=== PATIENT | male | born 1945 | race African-American/Black ===

== ENCOUNTER 2018-04-26 07:18 | Emergency (ER) | payer BC | END 2018-04-26 08:33 | disposition home or self-care (01) | LOC: ER 07:18 | DX: L02.01 Cutaneous abscess of face (principal); E11.9 Type 2 diabetes mellitus without complications | CPT/HCPCS: 70486; 99284 ==

== ENCOUNTER 2018-05-03 09:25 | Emergency (ER) | payer BC | END 2018-05-03 09:50 | disposition home or self-care (01) | LOC: ER 09:25 | DX: T63.331D Toxic effect of venom of brown recluse spider, accidental (unintentional), subsequent encounter (principal); L98.8 Other specified disorders of the skin and subcutaneous tissue; E11.9 Type 2 diabetes mellitus without complications | CPT/HCPCS: 99283 ==

== ENCOUNTER 2020-06-13 19:48 | Emergency (ER) | payer BC, MEDICARE ==
[~2020-06-13] VITALS: Ht 172.7 cm; Wt 65.9 kg
[~2020-06-13 19:48] MED LIST: AMOX1TAB61 PO; DOXY100C14 PO; HYDR-3164 PO; IBUP-1060 PO; TRAM50TA PO
--- NOTE | 2020-06-13 21:40 | PHYS DOC ---
Past Medical History Past Medical History: Diabetes-Type II Past Surgical History: No Surgical History Smoking Status: Never Smoker Alcohol Use: Occasionally Drug Use: None General Adult EDM: Chief Complaint: LOWER EXTREMITY EDEMA HPI: HPI: Patient is a 75 year old male presents for evaluation of left lower extremity swelling. Patient had pain left calf described as a george horse 5-6 days ago. Patient noticed swelling left lower extremity left pedal 2 days ago. Denies history of DVT or PE. Patient denies chest pain or shortness of breath. Review of Systems: Review of Systems: Constitutional: Denies fever or chills. [] Eyes: Denies change in visual acuity. [] HENT: Denies nasal congestion or sore throat. [] Respiratory: Denies cough or shortness of breath. [] Cardiovascular: Denies chest pain or edema. [] GI: Denies abdominal pain, nausea, vomiting, bloody stools or diarrhea. [] : Denies dysuria. [] Musculoskeletal: Positive lower extremity edema positive lower extremity pain Integument: Denies rash. [] Neurologic: Denies headache, focal weakness or sensory changes. [] Endocrine: Denies polyuria or polydipsia. [] Lymphatic: Denies swollen glands. [] Psychiatric: Denies depression or anxiety. [] Heart Score: Risk Factors: Risk Factors: DM, Current or recent (<one month) smoker, HTN, HLP, family history of CAD, obesity. Risk Scores: Score 0 - 3: 2.5% MACE over next 6 weeks - Discharge Home Score 4 - 6: 20.3% MACE over next 6 weeks - Admit for Clinical Observation Score 7 - 10: 72.7% MACE over next 6 weeks - Early Invasive Strategies Allergies: Allergies: Allergies Coded Allergies Type Severity Reaction Last Updated Verified No Known Drug Allergies 04/26/18 No Physical Exam: PE: Constitutional: Well developed, well nourished, no acute distress, non-toxic appearance. [] HENT: Normocephalic, atraumatic, bilateral external ears normal, oropharynx moist, no oral exudates, nose normal. [] Eyes: PERRLA, EOMI, conjunctiva normal, no discharge. [] Neck: Normal range of motion, no tenderness, supple, no stridor. [] Cardiovascular:Heart rate regular rhythm, no murmur [] Lungs & Thorax: Bilateral breath sounds clear to auscultation [] Abdomen: Bowel sounds normal, soft, no tenderness, no masses, no pulsatile masses. [] Skin: Warm, dry, no erythema, no rash. [] Back: No tenderness, no CVA tenderness. [] Extremities: No tenderness, no cyanosis, no clubbing, ROM intact, swelling left lower extremity left lower extremity is neurovascularly intact Neurologic: Alert and oriented X 3, normal motor function, normal sensory function, no focal deficits noted. [] Psychologic: Affect normal, judgement normal, mood normal. [] Current Patient Data: Vital Signs: Vital Signs Date Time Temp Pulse Resp B/P (MAP) Pulse Ox O2 Delivery O2 Flow Rate FiO2 06/13/20 20:39 96.9 80 20 146/80 (102) 95 Room Air 96.9 EKG: EKG: [] Radiology/Procedures: Radiology/Procedures: [] Impression: HISTORY: Left leg pain and swelling COMPARISON/CORRELATION: None FINDINGS: Left lower extremity duplex venous ultrasound exam was performed. Grayscale, color Doppler, and spectral Doppler imaging was performed. Compression and augmentation was performed. Partially occlusive left common femoral venous thrombus is seen. Occlusive thrombus involves the left superficial femoral vein, proximal profunda femoris vein, popliteal vein, and posterior tibial vein. The great saphenous vein junction is normal. IMPRESSION: Occlusive thrombus identified involving much of the left lower extremity deep venous system. Partially occlusive left common femoral vein. Course & Med Decision Making: Course & Med Decision Making Pertinent Labs and Imaging studies reviewed. (See chart for details) [] Ultrasound performed signs of DVT left lower extremity. I discussed with the patient hospitalization and he would prefer outpatient treatment. I discussed the risks of discharge and benefits of hospitalization. Risks include pulmonary embolism blood clot to the lungs leading to . Patient is aware of this risk and still would like to follow-up on outpatient basis. Patient has a primary care physician that he can follow-up with. Patient states he will call the office in the morning. Patient will be treated with Eliquis in the ER and discharged home with eliquis. Patient advised strict return precautions. Patient advised he must return to the ER if he starts to experience chest pain or shortness of breath. Eliquiest 10mg PO x BID x 7 days then 5mg PO BID. Ian Disclaimer: Ian Disclaimer: This electronic medical record was generated, in whole or in part, using a voice recognition dictation system. Departure Departure Impression: Primary Impression: DVT (deep venous thrombosis) Disposition: HOME, SELF-CARE Condition: STABLE Referrals: NO PCP (PCP) Patient Instructions: Deep Vein Thrombosis Scripts Apixaban (ELIQUIS) 5 Mg Tablet 5 MG PO BID, #60 TAB 10 mg PO BID x 7 days then 5mg PO BID Prov: BARRY RIVAS DO 06/13/20 Justicifation of Admission Dx: Justifications for Admission: Justification of Admission Dx: N/A BARRY RIVAS DO Jun 13, 2020 21:40
--- NOTE | 2020-06-13 22:00 | RAD ---
EXAMINATION: VENOUS LOWER EXTREMITY LEFT HISTORY: Left leg pain and swelling COMPARISON/CORRELATION: None FINDINGS: Left lower extremity duplex venous ultrasound exam was performed. Grayscale, color Doppler, and spectral Doppler imaging was performed. Compression and augmentation was performed. Partially occlusive left common femoral venous thrombus is seen. Occlusive thrombus involves the left superficial femoral vein, proximal profunda femoris vein, popliteal vein, and posterior tibial vein. The great saphenous vein junction is normal. IMPRESSION: Occlusive thrombus identified involving much of the left lower extremity deep venous system. Partially occlusive left common femoral vein. On 06/13/2020 at 9:56 PM, results were discussed with the referring ED physician. Electronically signed by: Lee Fine MD (06/13/2020 9:57 PM) [id number]
[2020-06-13 22:30] VITALS: BP 136/81
[2020-06-13] MEDS ORDERED: APIX5TAB PO (22:32)
[2020-06-13] MEDS ORDERED: APIXABAN 5 MG TABLET. PO ONE (22:45)
[2020-06-13 22:49] LABS: BASO % 1 % (0-3); EOS # 0.4 x10^3/uL (0.0-0.7); EOS % 4 % (0-3); HEMATOCRIT 53.1 % (39.0-53.0); HEMOGLOBIN 17.7 g/dL (13.0-17.5); LYMPH # 1.8 x10^3/uL (1.0-4.8); LYMPH % 19 % (24-48); MEAN CORPUSCULAR HEMOGLOBIN 30 pg (25-35); MEAN CORPUSCULAR HGB CONC 33 g/dL (31-37); MEAN CORPUSCULAR VOLUME 89 fL (79-100); MONO # 1.1 x10^3/uL (0.0-1.1); MONO % 12 % (0-9); NEUT # 6.2 x10^3/uL (1.8-7.7); NEUT % 65 % (31-73); PLATELET COUNT 116 x10^3/uL (140-400); RED BLOOD COUNT 5.99 x10^6/uL (4.30-5.70); RED CELL DISTRIBUTION WIDTH 15.1 % (11.5-14.5); WHITE BLOOD COUNT 9.5 x10^3/uL (4.0-11.0)
[2020-06-13 23:01] LABS: PROTHROMBIN TIME PATIENT 14.9 SEC (11.7-14.0)
[2020-06-13 23:08] LABS: GFR 87.7; POTASSIUM 3.3 mmol/L (3.5-5.1)
[2020-06-13 23:15] LABS: ALBUMIN 2.7 g/dL (3.4-5.0); ALBUMIN/GLOBULIN RATIO 0.6 (1.0-1.7); TOTAL BILIRUBIN 1.5 mg/dL (0.2-1.0); TOTAL PROTEIN 7.5 g/dL (6.4-8.2)
== END 2020-06-13 23:33 | disposition home or self-care (01) ==
LOC: ER 19:48
DX: I82.402 Acute embolism and thrombosis of unspecified deep veins of left lower extremity (principal); R60.0 Localized edema; E11.9 Type 2 diabetes mellitus without complications
CPT/HCPCS: 36415; 80053; 85025; 85610; 85730; 93971; 99284